=== PATIENT | male | born 1970 | race Caucasian/White ===

== ENCOUNTER 2016-11-04 11:13 | Emergency (ER) | payer MEDICAID, OTHER ==
[~2016-11-04] VITALS: Ht 177.8 cm; Wt 80.0 kg
[~2016-11-04 11:13] MED LIST: IBUP-1542 PO; IBUP400T22 PO
[2016-11-04 11:15] VITALS: Ht 177.8 cm; Wt 80.0 kg
[2016-11-04] MEDS ORDERED: KETOROLAC 30 MG INJ IM STA (11:50)
[2016-11-04] MEDS ORDERED: HYDROCODONE/APAP (5/325) TAB PO ONE (12:00)
--- NOTE | 2016-11-04 12:57 | RADRPT ---
PROCEDURE: Left knee series CLINICAL INDICATION: Pain. TECHNIQUE: 3 views. COMPARISON: None FINDINGS: No fractures or lesions are noted. Joint spaces are well maintained. No significant osteophytosis is noted. No effusion is identified. No erosions are visualized. The soft tissues are unremarkable. IMPRESSION: 1. No bony abnormalities are identified. RPTAT: HH .Wicho Catalan MD, MD Date Time Electronically viewed and signed by .Wicho Catalan MD, on 11/04/2016 12:56 .G/
[2016-11-04] MEDS ORDERED: IBUP-1542 PO (13:02)
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
== END 2016-11-04 13:13 | disposition home or self-care (01) ==
LOC: FTE 11:13
DX: S89.92XA Unspecified injury of left lower leg, initial encounter (principal); F17.210 Nicotine dependence, cigarettes, uncomplicated; V18.0XXA Pedal cycle driver injured in noncollision transport accident in nontraffic accident, initial encounter; Y92.9 Unspecified place or not applicable
CPT/HCPCS: 73562; 96372; J1885; Z7502; Z7610

== ENCOUNTER 2018-10-26 03:32 | Emergency (ER) | payer SELFPAY ==
[~2018-10-26] VITALS: Ht 177.8 cm; Wt 87.1 kg
[~2018-10-26 03:32] MED LIST changes: +IBUP-1561 PO; -IBUP400T22 PO
[2018-10-26 03:37] VITALS: BP 141/82; PULSE 82; RESP 18; Ht 177.8 cm; Wt 87.1 kg
--- NOTE | 2018-10-26 03:58 | ERD ---
ER Documentation Chief Complaint Chief Complaint cough x 4 days HPI This is a 48-year-old male who presents here in the emergency department with complaints of cough for about 4 days. Stated that he has phlegm whenever he coughs in the last 2 days. Denies headache, head injury, loss of consciousness, dizziness, neck pain, neck stiffness, throat pain, difficulty swallowing, difficulty breathing lying flat, shoulder pain, chest pain, back pain, abdominal pain, nausea, vomiting, constipation, diarrhea, urinary symptoms, loss of bowel and bladder control, trauma, injury, falls, difficulty walking due to pain, numbness or tingling sensation, calf pain, recent travel, recent major surgery in the last 3 weeks, calf pain, recent long travel, recent exposure to any illness, recent antibiotic use in the last 3 months, fever, chills, seizures. ROS All systems reviewed and are negative except as per history of present illness. Medications Home Meds Active Scripts Guaifenesin-Dextromethorphan* (Robafen* DM) 100MG/10MG/5ML Liquid, 5 ML PO Q6H PRN for COUGH, #120 ML Prov:ZURICELINAMANDY Jerry 10/26/18 Ibuprofen* (Motrin*) 800 Mg Tab, 800 MG PO Q6H PRN for PAIN AND OR ELEVATED TEMP, #30 TAB Prov:SHARADBECCAMARIO 10/26/18 Albuterol Sulfate* (Proair HFA*) 8.5 Gm Hfa.aer.ad, 2 PUFF INH Q4H PRN for WHEEZING AND SOB, #1 INHALER Prov:SHARADBECCAMARIO 10/26/18 Azithromycin* (Zithromax*) 250 Mg Tablet, 250 MG PO .ZPACK DIRECTED, #6 TAB TAKE 500 MG (2 TABS) THE FIRST DAY THEN 250 MG (1 TAB) DAYS 2-5 Prov:SHARADBECCACELINAMANDY Jerry 10/26/18 Ibuprofen* (Motrin*) 600 Mg Tab, 600 MG PO Q6, #15 TAB Prov:GUALBERTO VELEZ LINE WELDER 11/04/16 Ibuprofen* (Motrin*) 600 Mg Tab, 600 MG PO Q6H PRN for PAIN AND OR ELEVATED TEMP, #30 TAB Prov:RUBINA BOWIE LINE WELDER 09/19/16 Ibuprofen* (Motrin*) 400 Mg Tab, 400 MG PO Q6 for 7 Days, #30 TAB 0 Refills Prov:VANNIR LEUNG 07/11/16 Allergies Allergies: Coded Allergies: No Known Allergy (Unverified , 11/04/16) PMhx/Soc History of Surgery: No Anesthesia Reaction: No Hx Neurological Disorder: No Hx Respiratory Disorders: No Hx Cardiac Disorders: No Hx Psychiatric Problems: Yes (schizophrenia) Hx Miscellaneous Medical Probl: No Hx Alcohol Use: Yes Hx Substance Use: No Hx Tobacco Use: Yes Smoking Status: Current every day smoker Physical Exam Vitals Vital Signs Date Temp Pulse Resp B/P (MAP) Pulse Ox O2 O2 Flow FiO2 Time Delivery Rate 10/26/18 97.9 82 18 141/82 98 03:37 (101) Physical Exam Const: No acute distress Head: Atraumatic Eyes: Normal Conjunctiva ENT: Normal External Ears, Nose and Mouth. Bilateral ears: TMs are not erythematous. No bleeding. No discharge. No hearing loss. No mastoid tenderness. Nose: Midline. There is no frontal or maxillary sinus tenderness to palpation. Throat: Uvula is midline and nondisplaced. Tonsils are +1 with mild redness but no exudates. Tolerating secretions. Speaks full and clear sentences. Neck: Full range of motion. No meningismus. Resp: Clear to auscultation bilaterally. No accessory muscle use in breathing. Cardio: Regular rate and rhythm, no murmurs Abd: Soft, non tender, non distended. Normal bowel sounds Skin: No petechiae or rashes Back: No midline or flank tenderness Ext: No cyanosis, or edema Neur: Awake and alert. No neurological deficits. Psych: Normal Mood and Affect Procedures/MDM Diagnostic tests: Clinical exam. Treatment: Not applicable. Re-evaluation: Not applicable. Differential diagnosis I have low suspicion for sepsis, pneumonia. Final diagnosis: Bronchitis. Prescription: Azithromycin. Robafen. Motrin. Pro-air. Follow-up with PCP in the next 24-48 hours. Come back here in the emergency department for any new symptoms or any worsening symptoms. All questions and concerns were answered. Patient and family members verbalized understanding and agreed with plan of care. Hemodynamically stable on discharge. Departure Diagnosis: Primary Impression: Cough Additional Impression: Bronchitis Condition: Stable Additional Instructions: Follow-up with PCP in the next 24-48 hours. Come back here in the emergency department for any new symptoms or any worsening symptoms. MARIO KEATING Oct 26, 2018 03:58
[2018-10-26] MEDS ORDERED: AZIT250T PO (03:59)
[2018-10-26] MEDS ORDERED: ALBU8.5H8 INH (03:59)
[2018-10-26] MEDS ORDERED: IBUP800T48 PO (03:59)
[2018-10-26] MEDS ORDERED: GUAI-227 PO (03:59)
== END 2018-10-26 04:33 | disposition home or self-care (01) ==
LOC: FTE 03:32
DX: J40 Bronchitis, not specified as acute or chronic (principal); F17.210 Nicotine dependence, cigarettes, uncomplicated
CPT/HCPCS: 99283